=== PATIENT | female | born 1950 | race Caucasian/White ===

== ENCOUNTER 2023-07-22 10:15 | Outpatient (CLI) | payer MEDICARE, SELFPAY | END 2023-07-22 10:16 | disposition home or self-care (01) | LOC: NFLDREF 07-24 12:04 | PROVIDERS: PCP Family Medicine; Referring Provider Family Medicine; Visit Provider Family Medicine | DX: I10 Essential (primary) hypertension (principal); E78.5 Hyperlipidemia, unspecified; Z13.0 Encounter for screening for diseases of the blood and blood-forming organs and certain disorders involving the immune mechanism | CPT/HCPCS: 80048; 80061 ==

== ENCOUNTER 2023-08-27 12:44 | Outpatient (CLI) | payer MEDICARE, SELFPAY ==
--- NOTE | 2023-08-27 13:00 | CRLHL7_ITS ---
For Patients: As a result of the Century Cures Act, medical imaging exams and procedure reports are released immediately into your electronic medical record. You may view this report before your referring provider. If you have questions, please contact your health care provider. DXA BONE MINERAL DENSITY STUDY Reason for exam: Other specified disorders of bone density and structure-osteopenia, kyphosis. Current height (in): 68. Weight (lb): 230. Menopause age: 57. Ethnicity: White. 1. Have you had a previous hip or vertebral fracture? No. 2. Have you had any fractures during your adult life which did not result from significant trauma (e.g., auto accident)? No. 3. Did either of your parents have a hip fracture? No. 4. Do you smoke? No. 5. Have you ever taken Glucocorticoids? No. 6. Do you have rheumatoid arthritis? No. 7. Do you have secondary osteoporosis? No. 8. Do you drink 3 or more alcoholic drinks per day? No. 9. Are you being treated for osteoporosis? No. 10. Have you ever taken any of the following medications: Actonel, Evista, Fosamax, Miacalcin, Reclast, Boniva, Forteo, HRT (i.e., estrogen/hormone therapy), Protelos, Prolia, Vitamin D, Calcium, other ??? please specify. ANSWER: Yes, vitamin D and calcium. 11. Do you have any of the following medical conditions: Anorexia or bulimia, asthma or emphysema, end stage renal disease, hyperparathyroidism, any seizure disorders, cancer, inflammatory bowel diseases, hysterectomy, other ??? please specify. ANSWER: No. 12. What was your maximum height (inches)? 68. 13. Do you perform weight bearing exercise regularly? No. 14. Do you regularly consume dairy products? No. 15. Do you drink caffeinated beverages? Yes. If female: 16. At what age did your period start? 13. 17. Are you premenopausal? No. 18. How many full-term pregnancies have you had? 2. 19. Have you ever missed your period for more than 6 months in a row (not including or menopause)? No. TECHNIQUE: Bone mineral density study was performed using the [employer]. FINDINGS: The results of the study expressed as bone mineral density (BMD) are as follows: Lumbar spine L1 to L4: BMD: 1.093 g/cm2. T-score: 0.4. Z-score: 2.6 Neck Left: BMD: 0.683 g/cm2. T-score: -1.5. Z-score: 0.4 Right: BMD: 0.705 g/cm2. T-score: -1.3. Z-score: 0.6 Total Left: BMD: 0.813 g/cm2. T-score: -1.1. Z-score: 0.5 Right: BMD: 0.907 g/cm2. T-score: -0.3. Z-score: 1.3 IMPRESSION: Osteopenia. *Comparison exams done prior to 02/2020 were performed on different unit, [employer] COMPARISON: Compared with scan of 08/21/2016 the bone mineral density has increased by 2.4 percent at the spine and increased by 1.6 percent at the hip. FRAX 10-year Fracture Risk Major Osteoporotic Fracture: 9.6% Hip Fracture: 1.4% Reported Risk Factors: [place] () Neck BMD=0.683, BMI= 35.0 Alberto Hooper M.D. Diagnostic Radiologist [email or web address] [email or web address]/elza [email or web address]/Dictated by: Alberto Hooper MD @ 08/28/2023 10:31:00 AM (Electronically Signed)
== END 2023-08-27 12:45 | disposition home or self-care (01) ==
LOC: RAD 12:44
PROVIDERS: PCP Family Medicine; Visit Provider Family Medicine
DX: Z13.820 Encounter for screening for osteoporosis (principal); M85.80 Other specified disorders of bone density and structure, unspecified site
CPT/HCPCS: 77080

== ENCOUNTER 2023-09-03 09:40 | Outpatient (CLI) | payer MEDICARE, SELFPAY ==
--- NOTE | 2023-09-03 11:27 | W.ANESCHARGE ---
Anesthesia Charges Start Date/Time Anesthesia Start Date: 09/03/23 Anesthesia Start Time: 10:23 Stop Date/Time Anesthesia Stop Date: 09/03/23 Anesthesia Stop Time: 11:25 Summary Extremes of Age - Over 70 or under 1: IMPORT MANAGER
--- NOTE | 2023-09-03 14:54 | W.ANESCHARGE ---
Anesthesia Charges Start Date/Time Anesthesia Start Date: 09/03/23 Anesthesia Start Time: 10:23 Stop Date/Time Anesthesia Stop Date: 09/03/23 Anesthesia Stop Time: 11:25 Summary Extremes of Age - Over 70 or under 1: MDA
== END 2023-09-03 09:41 | disposition home or self-care (01) ==
LOC: OP CLINIC 09:40
PROVIDERS: PCP Family Medicine; Visit Provider Surgery
DX: Z12.11 Encounter for screening for malignant neoplasm of colon (principal); K63.5 Polyp of colon; K64.8 Other hemorrhoids; K57.30 Diverticulosis of large intestine without perforation or abscess without bleeding; Z83.719 Family history of colon polyps, unspecified
CPT/HCPCS: 00811; 45381; 45385; 88305; 99100; J2704

== ENCOUNTER 2023-10-21 11:21 | Outpatient (CLI) | payer MEDICARE, SELFPAY ==
--- NOTE | 2023-10-21 11:30 | CRLHL7_ITS ---
For Patients: As a result of the Century Cures Act, medical imaging exams and procedure reports are released immediately into your electronic medical record. You may view this report before your referring provider. If you have questions, please contact your health care provider. BILATERAL SCREENING MAMMOGRAM WITH COMPUTER-AIDED DETECTION AND TOMOSYNTHESIS TECHNIQUE: CC and MLO views were obtained. These mammographic images have been obtained using full-field digital technique. These mammographic images were interpreted with the benefit of computer-aided detection. Breast Tomosynthesis was used in this interpretation. COMPARISON FILM: 01/14/22, 12/04/20, 11/23/19. FINDINGS: There are scattered areas of fibroglandular density. IMPRESSION: There is no radiographic evidence for malignancy. ASSESSMENT: BI-RADS Category 2: Benign RECOMMENDATION: Routine screening mammogram in 1 year. A lay language report of this examination will be provided to the patient. Alberto Hooper M.D. Diagnostic Radiologist [email or web address] SP/Dictated by: Alberto Hooper MD @ 10/21/2023 12:51:00 PM (Electronically Signed)
== END 2023-10-21 11:22 | disposition home or self-care (01) ==
LOC: MAMMO 11:22
PROVIDERS: PCP Family Medicine; Visit Provider Family Medicine
DX: Z12.31 Encounter for screening mammogram for malignant neoplasm of breast (principal)
CPT/HCPCS: 77063; 77067

== ENCOUNTER 2023-11-03 12:36 | Outpatient (CLI) | payer MEDICARE, SELFPAY | END 2023-11-03 12:37 | disposition home or self-care (01) | LOC: NFLDUCREF 12:37 | PROVIDERS: PCP Family Medicine; Visit Provider Nurse Practitioner | DX: R79.89 Other specified abnormal findings of blood chemistry (principal) | CPT/HCPCS: 84550 ==

== ENCOUNTER 2024-09-05 11:23 | Outpatient (CLI) | payer MEDICARE, SELFPAY | END 2024-09-05 11:24 | disposition home or self-care (01) | PROVIDERS: PCP Family Medicine; Visit Provider Family Medicine | DX: E78.2 Mixed hyperlipidemia (principal); I10 Essential (primary) hypertension; Z13.29 Encounter for screening for other suspected endocrine disorder | CPT/HCPCS: 80048; 80061; 84443 ==

== ENCOUNTER 2024-09-29 10:10 | Outpatient (CLI) | payer MEDICARE, SELFPAY ==
--- NOTE | 2024-09-29 10:58 | P.ANES_ITS ---
Anesthesia Charges Start Date/Time Anesthesia Start Date: 09/29/24 Anesthesia Start Time: 11:10 Stop Date/Time Anesthesia Stop Date: 09/29/24 Anesthesia Stop Time: 12:01 Summary Extremes of Age - Over 70 or under 1: JOB PLACEMENT SPECIALIST Coding CPT Codes CPT Codes: ANES LWR INTST NDSC NOS - 22359 ([id number]) P3 - PATIENT W/SEVERE SYS DISEASE, QK - CHEMICAL STRENGTH TESTER 2-4 CNCRNT ANES PROC, QX - JOB PLACEMENT SPECIALIST SVC W/ MD MED DIRECTION Additional Codes: Summary - Extremes of Age - Over 70 or under 1: JOB PLACEMENT SPECIALIST ([id number])
--- NOTE | 2024-09-29 10:58 | W.ANESCHARGE ---
Anesthesia Charges Start Date/Time Anesthesia Start Date: 09/29/24 Anesthesia Start Time: 11:10 Stop Date/Time Anesthesia Stop Date: 09/29/24 Anesthesia Stop Time: 12:01 Summary Extremes of Age - Over 70 or under 1: LAMINATION ASSEMBLER Coding CPT Codes CPT Codes: ANES LWR INTST NDSC NOS - 60229 ([id number]) P3 - PATIENT W/SEVERE SYS DISEASE, QK - OFFSET LABEL REWINDER 2-4 CNCRNT ANES PROC, QX - LAMINATION ASSEMBLER SVC W/ MD MED DIRECTION Additional Codes: Summary - Extremes of Age - Over 70 or under 1: LAMINATION ASSEMBLER ([id number])
--- NOTE | 2024-09-29 12:22 | W.ANESCHARGE ---
Anesthesia Charges Start Date/Time Anesthesia Start Date: 09/29/24 Anesthesia Start Time: 11:10 Stop Date/Time Anesthesia Stop Date: 09/29/24 Anesthesia Stop Time: 12:01 Summary Extremes of Age - Over 70 or under 1: MDA Coding CPT Codes CPT Codes: ANES LWR INTST NDSC NOS - 41226 ([id number]) QK - COMPUTATIONAL CHEMIST 2-4 CNCRNT ANES PROC, QX - ELEMENTARY SCHOOL TEACHER SVC W/ MD MED DIRECTION, P3 - PATIENT W/SEVERE SYS DISEASE Additional Codes: Summary - Extremes of Age - Over 70 or under 1: MDA ([id number])
== END 2024-09-29 10:11 | disposition home or self-care (01) ==
LOC: OP CLINIC 10:11
PROVIDERS: PCP Family Medicine; Visit Provider Surgery
DX: Z12.11 Encounter for screening for malignant neoplasm of colon (principal); D12.2 Benign neoplasm of ascending colon; D12.3 Benign neoplasm of transverse colon; K56.699 Other intestinal obstruction unspecified as to partial versus complete obstruction; K64.8 Other hemorrhoids; K64.4 Residual hemorrhoidal skin tags; Z86.0101 Personal history of adenomatous and serrated colon polyps
CPT/HCPCS: 00811; 45385; 88305; 99100; J2704

== ENCOUNTER 2024-11-28 11:24 | Day surgery (SDC) | payer MEDICARE, SELFPAY ==
[2024-11-28] VITALS (29 sets, daily range): BP systolic 93–153; BP diastolic 55–90; PULSE 40–60; RESP 11–18; TEMP 36.1–36.7; O2SAT 83–99; BMI 35.9
[2024-11-28] MEDS: OXYCODONE (CR) 10 MG TAB.ER.12H PO (11:31)
[2024-11-28] MEDS: ACETAMINOPHEN 500 MG TABLET 1000 MG PO ×2 (11:31→22:12)
[2024-11-28] MEDS: LACTATED RINGERS 1000 ML 1,000 ML 100 ML IV ×2 (11:35→16:08)
--- NOTE | 2024-11-28 11:55 | W.PM.H&PU ---
History & Physical Update History & Physical Update H&P Reviewed and patient assessed: No changes noted
[2024-11-28] MEDS: SODIUM CHLORIDE 0.9 % (FLUSH) 10 ML SYRINGE IVF (12:03)
[2024-11-28] MEDS: MIDAZOLAM HCL 1 MG/ML inj IVP (12:52)
[2024-11-28] MEDS: fentaNYL 100 MCG/2 ML inj IVP (12:52)
--- NOTE | 2024-11-28 13:02 | W.PM.NB ---
Nerve Block Nerve Block Time Seen by Provider: 13:00 Date Seen: 11/28/24 Type of block requested by surgeon for post-operative analgesia: adductor canal Side: left Time out performed: Yes Verification of patient name: Yes Verification of date of : Yes Site marking: site marked Name of person performing procedure: Ruiz Continuous monitoring Was continuous monitoring of O2 sat, B/P, production statistical clerk, recorded every 15 minutes?: Yes Procedure Checklist: sterile prep, needles and gloves Ultrasound guided. Images saved: Yes Medications given in 5ml increments after negative aspiration: Marcaine %: 0.25 mL: 15 Needle gauge: 20 Precedex (mcg): 25 Patient tolerated procedure well: Yes Block Charges Block Charge (with Pro Fee): Femoral Nerve Use of Ultrasound Machine for Block: Yes- US Guidance/pain block
--- NOTE | 2024-11-28 13:02 | W.PM.NB ---
Nerve Block Nerve Block Time Seen by Provider: 13:00 Date Seen: 11/28/24 Type of block requested by surgeon for post-operative analgesia: geniculars Side: left Time out performed: Yes Verification of patient name: Yes Verification of date of : Yes Site marking: site marked Name of person performing procedure: Ruiz Continuous monitoring Was continuous monitoring of O2 sat, B/P, vibrator operator, recorded every 15 minutes?: Yes Procedure Checklist: sterile prep, needles and gloves Ultrasound guided. Images saved: Yes Medications given in 5ml increments after negative aspiration: Marcaine %: 0.25 mL: 9 Needle gauge: 25 Patient tolerated procedure well: Yes Block Charges Block Charge (with Pro Fee): Genicular Nerve Block
[2024-11-28] MEDS: TRANEXAMIC ACID 100 MG/ML INJ 1000 MG IV (13:50)
[2024-11-28] MEDS: CEFAZOLIN 2 GM in 0.9 % SODIUM CHLORIDE Mini-bag 100 ML IVPB ×2 (13:57→20:30)
--- NOTE | 2024-11-28 15:23 | W.ANESCHARGE ---
Anesthesia Charges Start Date/Time Anesthesia Start Date: 11/28/24 Anesthesia Start Time: 13:29 Stop Date/Time Anesthesia Stop Date: 11/28/24 Anesthesia Stop Time: 16:55 Summary Extremes of Age - Over 70 or under 1: MDA Coding CPT Codes CPT Codes: ANESTH KNEE ARTHROPLASTY - 89349 ([id number]) P3 - PATIENT W/SEVERE SYS DISEASE, QK - TRACTOR TRAILER DRIVER 2-4 CNCRNT ANES PROC, QX - L TACKER SVC W/ MD MED DIRECTION Additional Codes: Summary - Extremes of Age - Over 70 or under 1: MDA ([id number])
--- NOTE | 2024-11-28 16:02 | PM.ORPRC ---
Procedure Note Date of procedure: 11/28/24 Procedure: PREOPERATIVE DIAGNOSIS: 1. Left knee osteoarthritis, primary, severe POSTOPERATIVE DIAGNOSIS: 1. Left knee osteoarthritis, primary, severe PROCEDURE: 1. Left total knee arthroplasty - subvastus - 33 % added difficulty and time to this case due to patient's significant valgus deformity which required stemmed tibial component and intraoperative radiograph to assess alignment. SURGEON: Alex Boggs MD. CEMENT PRODUCTION PLANT OPERATOR: Ricardo Sultana PA-C - Of note, a skilled speech and language assistant was critical for this case to aid in patient positioning, tissue retraction, limb manipulation/positioning, and closure. ANESTHESIA: Spinal anesthetic EBL: 100 mL IMPLANTS: DePuy J&J all cemented TKA - Attune PS femur size 6 Size 6 tibia ([id number] stem) 6 mm poly spacer 35 mm patella TOURNIQUET: Total time of 91 min at 300 torr COMPLICATIONS: None evident INDICATIONS: The patient is a pleasant 74-year-old female who has experienced severe left knee pain and difficulty bearing weight. Workup included x-rays which revealed severe osteoarthrosis in the knee. Given the deformity, the dysfunction, and the pain, as well as the failure of nonoperative management, recommendation was made for surgery. FINDINGS: Full-thickness chondral loss diffusely throughout the lateral compartment but also medial and patellofemoral compartments. Degenerative meniscus pathology lateral greater than medial. Very large effusion upon entering the joint. Significant valgus deformity preoperatively with recurvatum. DESCRIPTION OF PROCEDURE: Following a thorough discussion of risks, benefits, and alternatives consent was obtained and the left knee was marked. The patient was brought to the operating room and placed supine on the operating table. Induction of anesthesia was undertaken. 2 g IV Ancef and 1 g tranexamic acid was administered within 1 hr of incision preoperatively. Proper time-out was performed identifying proper patient, site, procedure. The operative extremity was prepped and draped in the appropriate sterile fashion using ChloraPrep after the patient was positioned supine with all bony prominences well padded. A longitudinal, anterior, midline skin incision was made starting approximately 3cm proximal to the superior pole of the patella and advanced distal to the tibial tubercle. A subvastus approach was utilized. A medial subperiosteal sleeve was created with knife, wynne elevator and curved osteotome. The retropatellar fatpad was resected and the synovium in the suprapatellar pouch excised to visualize the anterior femoral cortex. Femoral preparation was performed via an intramedullary guide. Step drill allowed access into the femoral canal. The distal cutting guide was placed with 6 ? of valgus and 10 mm cut on the distal femur. Femur was sized using a combination of trans epicondylar axis, Whitesides line, and posterior referencing guide in 5 ? of external rotation. This found have a best fit with the sizing noted above. The 4 in 1 cutting block was then placed, and the distal femur shaped accordingly. The box cut was then created and the trial implant inserted to confirm appropriate fit. We turned our attention to the proximal tibia. Extramedullary guide was utilized for cutting with the goal of being 90 degree cut from the mechanical axis of the tibia in the varus/valgus plane utilizing tibial crest as the primary alignment. Initially a 3 mm resection was performed from the medial tibial plateau. Given the significant valgus deformity, there was thought that possibly increased constraint would be needed. Additionally, given her poor bone quality was felt that a stem tibial component would be prudent. However, and preparing for the tibial component we found that the drill would not pass appropriately/smoothly. Therefore, intraoperative x-ray was obtained to evaluate the stem alignment/position. It was found that increasing the slope in increasing our valgus cut on the tibia would be appropriate to improve the alignment of the tibial stem. Thus, this was recut and the tibial component replaced and positioned. Of note, while we were waiting for and taking the intraop radiographs, the tourniquet was deflated after 70 minutes and hemostasis achieved. It remained down for 21 minutes. It was then reinflated for another 21 minutes for a total of 91 minutes. Ultimately, balancing was achieved in both flexion and extension in both varus and valgus. The knee was able to achieve full extension as well comfortably. The patella was initially measured and found have a thickness of 22 mm. It was resected back to approximately 14 mm. It was sized to be a best fit with as noted above. This was drilled, trial placed. All trials were placed and found to have an excellent stability and balance. At this stage, trial implants were removed, the knee was thoroughly irrigated with normal saline, and the cement was mixed. After irrigation, the knee was thoroughly dried, and cement placed, with the real tibial and femoral implants placed along with the patella. Trial poly spacer was placed and confirmed to have excellent range of motion and full extension, and the real poly spacer opened and inserted. All extra cement was removed, and a 3 min Betadine soak performed. Finally, a final irrigation round with normal saline was performed. Closure performed with 0 PDS and #0 Stratafix for the quad tendon/retinaculum. 2-0 Vicryl/Stratafix for the subcutaneous and 4-0 Monocryl for subcuticular closure. Dressings were applied and the patient was awoken from anesthesia after the tourniquet deflated and transferred the PACU in stable condition. A skilled speech and language assistant was critical for this case to aid in patient positioning, tissue retraction, bone exposure, limb manipulation/positioning, patient safety, and closure. * Again, 33 % added difficulty and time to this case due to patient's significant valgus deformity which required stemmed tibial component and intraoperative radiographs to assess and correct alignment. PLAN: 1. Weight bear as tolerated operative extremity. 2. 23 hr perioperative antibiotics. 3. Ice. 4. PT/OT consults for ambulation assistance/mobility education. 5. Social work consult for discharge planning. 6. DVT prophylaxis with at SCDs and aspirin twice daily.
--- NOTE | 2024-11-28 17:03 | W.ANESCHARGE ---
Anesthesia Charges Start Date/Time Anesthesia Start Date: 11/28/24 Anesthesia Start Time: 13:29 Stop Date/Time Anesthesia Stop Date: 11/28/24 Anesthesia Stop Time: 16:55 Summary Extremes of Age - Over 70 or under 1: GIS DATABASE ADMINISTRATOR Coding CPT Codes CPT Codes: ANESTH KNEE ARTHROPLASTY - 88083 ([id number]) P2 - PATIENT W/MILD SYST DISEASE, QK - UNIT CONTROLLER 2-4 CNCRNT ANES PROC, QX - GIS DATABASE ADMINISTRATOR SVC W/ MD MED DIRECTION Additional Codes: Summary - Extremes of Age - Over 70 or under 1: GIS DATABASE ADMINISTRATOR ([id number])
--- NOTE | 2024-11-28 17:51 | PM.IMCN1 ---
Date of Consult Consult date: 11/28/24 Requesting Physician: Orthopedics Primary Care Provider: Jose Pizano MD Consult Narrative Narrative: HOSPITALIST CONSULT Procedure: Left total knee arthroplasty - subvastus - 33 % added difficulty and time to this case due to patient's significant valgus deformity which required stemmed tibial component and intraoperative radiograph to assess alignment. SURGEON: Alex Boggs MD. ANESTHESIA: Spinal anesthetic EBL: 100 mL COMPLICATIONS: None evident The hospital medicine team was asked by the orthopedic surgery team to manage the patient's 6 med regimen hypertension, hyperlipidemia There have been no perioperative complications. I have updated and reviewed the active medical problems, past medical history, past surgical history, social history, allergies and medications in our electronic EMR. This includes a cross reference to care everywhere in [facility] and with [employer] [facility] databases. PHYSICAL EXAM: CODE STATUS: FULL CODE CONSTITUTIONAL: Conversive, good historian. A/O. Knows setting and context. VITAL SIGNS: see record. HEENT: Normocephalic, atraumatic. PERRL, EOMI, conjunctivae pink, no scleral icterus. Ears and nose externally normal. Pharynx normal. NECK: No JVD. No carotid bruit, no thyromegaly, no adenopathy. CHEST: Clear to auscultation bilaterally HEART: S1 and S2 normal. ABDOMEN: Flat, soft, nontender. Normal bowel sounds. Moderately obese. EXTREMITIES: No edema. MUSCULOSKELETAL: left knee SDI NEURO: Cranial nerves intact. Mentation normal. Normal affect. SKIN: No rashes, petechiae, concerning changes PSYCHIATRIC: Mentation normal. INVESTIGATIONS: EMR Reviewed; Pre-OP Reviewed DISPOSITION: DVT: Agree with Ortho team decision GI: PO intake [facility] Medical History (Updated 11/28/24 @ 18:34 by Carmel Villar MD) Family history of diabetes mellitus ?Z83.3 - Family history of diabetes mellitus (ICD-10) Osteoarthritis of left knee ?M17.12 - Unilateral primary osteoarthritis, left knee (ICD-10) Osteoarthritis of right knee ?M17.11 - Unilateral primary osteoarthritis, right knee (ICD-10) Pre-op examination ?Z01.818 - Encounter for other preprocedural examination (ICD-10) Hypertension ?I10 - Essential (primary) hypertension (ICD-10) Hyperlipidemia ?E78.5 - Hyperlipidemia, unspecified (ICD-10) GERD (gastroesophageal reflux disease) ?K21.9 - Gastro-esophageal reflux disease without esophagitis (ICD-10) Gout ?M10.9 - Gout, unspecified (ICD-10) Osteopenia ?M85.80 - Other specified disorders of bone density and structure, unspecified site (ICD-10) DJD (degenerative joint disease), lumbar ?M47.816 - Spondylosis without myelopathy or radiculopathy, lumbar region (ICD-10) Diverticulosis ?K57.90 - Diverticulosis of intestine, part unspecified, without perforation or abscess without bleeding (ICD-10) Cataracts, bilateral ?H26.9 - Unspecified cataract (ICD-10) Macular degeneration ?H35.30 - Unspecified macular degeneration (ICD-10) Pes planus of both feet ?M21.41 - Flat foot [pes planus] (acquired), right foot (ICD-10) ?M21.42 - Flat foot [pes planus] (acquired), left foot (ICD-10) Surgical History (Updated 11/28/24 @ 18:07 by Carmel Villar MD) Status post total left knee replacement ?Z96.652 - Presence of left artificial knee joint (ICD-10) History of breast biopsy ?Z98.890 - Other specified postprocedural states (ICD-10) History of ?Z98.891 - History of uterine scar from previous surgery (ICD-10) Status post appendectomy ?Z90.49 - Acquired absence of other specified parts of digestive tract (ICD-10) Status post tonsillectomy and adenoidectomy ?Z90.89 - Acquired absence of other organs (ICD-10) Family History Sister Lung cancer Liver cancer Social History Narrative: -[place] former smoker (2011) Smoking Status: Former smoker What tobacco products do you use: cigarettes Smoking quit date/years: <= 15 years ago Do you use any of these nicotine containing products: None Second hand tobacco smoke exposure: No How often do you have a drink containing alcohol: 2-3 times a week AUDIT-C Alcohol total score: 3 Non-prescribed substance use: denies use Caffeine: Yes Meds Home Medications and Allergies Home Medications ?Medication ?Instructions ?Recorded ?Confirmed ?Type aspirin 81 mg tablet,delayed 81 mg PO QDAY 02/16/24 11/28/24 History release (Adult Aspirin Regimen) Allergies Allergy/AdvReac Type Severity Reaction Status Date / Time erythromycin base Allergy Unknown Gastrointestinal Verified 11/28/24 11:58 Upset Macrolide Antibiotics Allergy Unknown Verified 11/28/24 11:58 Exam Const: Vital Signs, click to edit/add: Vital Signs - 24 hr 11/28/24 11:59 11/28/24 12:52 11/28/24 13:00 Temperature 97.9 F Pulse Rate 52 L 50 L 43 L Respiratory Rate 16 16 16 Blood Pressure 133/90 H 153/82 H 124/79 Pulse Oximetry 95 99 99 Oxygen Delivery Me thod Room Air Nasal Cannula Nasal Cannula Oxygen Flow Rate 3 3 11/28/24 13:18 11/28/24 16:50 11/28/24 16:55 Temperature 97.4 F L Pulse Rate 44 L 53 L 46 L Respiratory Rate 16 11 L 12 Blood Pressure 95/62 95/63 112/64 Pulse Oximetry 98 94 95 Oxygen Delivery Me thod Nasal Cannula Nasal Cannula Nasal Cannula Oxygen Flow Rate 3 3 3 11/28/24 17:00 11/28/24 17:05 11/28/24 17:10 Temperature 98.0 F Pulse Rate 46 L 43 L 40 L Respiratory Rate 12 12 12 Blood Pressure 112/64 114/67 115/63 Pulse Oximetry 96 90 95 Oxygen Delivery Me thod Nasal Cannula Nasal Cannula Nasal Cannula Oxygen Flow Rate 3 3 3 11/28/24 17:15 11/28/24 17:20 Temperature 98.0 F Pulse Rate 42 L 43 L Respiratory Rate 12 14 Blood Pressure 108/64 93/58 L Pulse Oximetry 93 93 Oxygen Delivery Me thod Nasal Cannula Nasal Cannula Oxygen Flow Rate 3 3 Assessment and Plan Assessment and plan (1) Status post total left knee replacement: Problem comment: November 2024; Dr. Mulligan [facility] medicine team is happy to follow the patient through to discharge. We are expecting a routine postoperative course. I have reconciled home medications and completed our part of the discharge. -I will hold antihypertensives as indicated per our practice standard Status: Acute (2) Hypertension: Problem comment: -six med regimen (atenolol, furosemide, lisinopril, spironolactone, verapamil ER) - holding the atenolol, lisinopril. parameters on the verapamil ER. -reviewed ECG from pre-op appt (BP then was 147/71, P 50) -will add back home meds cautiously in the next 24 hours Status: Chronic (3) Bradycardia: Problem comment: -baseline has been 50's since 2022. P was 50 at pre-op -telemetry added as a caution Status: Acute (4) Hyperlipidemia: Problem comment: -continue home meds Status: Chronic (5) GERD (gastroesophageal reflux disease): Problem comment: -continue home meds Status: Acute
[2024-11-28] MEDS: OXYCODONE 5 MG TABLET PO (19:11)
--- NOTE | 2024-11-28 19:36 | PC.NURSE ---
Nursing Care Hours: [id number] Pt arrived to unit alert and oriented. Pain reached 2/10. Treated per emar. Pt tolerating PO intake. BP stable. H/O bradycardia, lowest HR was 38 for less than a minute and steady around mid 40's. Encouraged IS to keep sats above 90%. Sitting high fowlers in bed.
[2024-11-28] MEDS: ASPIRIN 81 MG TABLET EC PO (20:30)
[2024-11-28] MEDS: ATORVASTATIN CALCIUM 40 MG TABLET PO (20:30)
[2024-11-28] MEDS: SENNOSIDES 1 TAB TABLET 2 TAB PO (20:30)
[2024-11-28] MEDS: SPIRONOLACTONE 25 MG TABLET PO (20:30)
[2024-11-29] VITALS (7 sets, daily range): BP systolic 001–127; BP diastolic 48–76; PULSE 51–56; RESP 16–20; TEMP 36.5–36.9; O2SAT 91–94
[2024-11-29] MEDS: OXYCODONE 5 MG TABLET PO ×4 (04:03→15:25)
[2024-11-29] MEDS: ACETAMINOPHEN 500 MG TABLET 1000 MG PO ×3 (04:03→15:25)
[2024-11-29] MEDS: CEFAZOLIN 2 GM in 0.9 % SODIUM CHLORIDE Mini-bag 100 ML IVPB ×2 (04:04→12:47)
[2024-11-29 06:39] LABS: Basophils Absolute Auto 0.01 K/uL (0.00-0.30); Basophils Percent Auto 0.1 % (0.0-3.0); Hematocrit 34.1 % (33.0-51.0); Hemoglobin* 11.1 gm/dL (12.0-16.0); Immature Granulocytes Abs Auto 0.02 K/uL (0.00-0.30); Immature Granulocytes Pct Auto 0.2 %; Lymphocytes Percent Auto 6.8 % (20-44); Mean Corpuscular HGB Conc 33 gm/dL (32-36); Mean Corpuscular Hemoglobin 34 pg (26-34); Mean Corpuscular Volume 103 fL (80-100); Monocytes Percent Auto 8.4 % (0.0-11.0); Neutrophils Percent Auto 84.5 % (42.0-72.0); Platelet Count* 219 K/uL (140-440); RDW Coefficient of Variation % 13.8 % (11.5-15.5); White Blood Count* 10.49 K/uL (4.50-11.00)
[2024-11-29 06:41] LABS: Slide Review Reflex No
[2024-11-29 06:47] LABS: Potassium* 4.6 mmol/L (3.6-5.1); Sodium* 135 mmol/L (135-149)
[2024-11-29 06:50] LABS: Blood Urea Nitrogen* 27 mg/dL (7-30); Creatinine* 0.8 mg/dL (0.5-1.5); Estimated Glomerular Filt Rate 78 ml/min
--- NOTE | 2024-11-29 07:50 | PC.NURSE ---
Pt alert and oriented. Pt pleasant and cooperative. Pt up with assist of one-two with walker and gait belt. Pt had complaints of pain ranging from 0-6; see EMAR for intervention.? ?
--- NOTE | 2024-11-29 08:26 | PM.IMPN1 ---
Progress Note: A&P Assessment and plan (1) Status post total left knee replacement: Problem details: November 2024; Dr. Mulligan pure no complications. Anticipate discharge to home when adequate pain control and able to ambulate with a walker. Status: Acute (2) Bradycardia: Problem details: Chronic bradycardia. Presumably secondary to medications. Appears to be asymptomatic with this. I recommend stopping verapamil and reducing atenolol from 100 mg to 50 mg daily and getting outpatient followup next week. Status: Acute (3) Hypertension: Problem details: Currently treated with spironolactone 25 mg b.i.d., lisinopril 40 mg daily, furosemide 20 mg daily, atenolol 100 mg daily, verapamil 120 mg daily. Due to bradycardia will cut atenolol in half and stop verapamil. Follow up next week in clinic to review. Consider amlodipine as alternative calcium channel leonard. Consider echocardiogram for evaluation of hypertensive heart disease. Status: Chronic Plan Possible discharge later today if doing well with therapy and pain management. Monitoring of blood pressure and pulse today for changes in blood pressure medications due to bradycardia. Time Spent With Patient Total time spent: Total time spent today is 35 minutes in coordination of care and discussing with patient and ongoing evaluation management. Subjective Date Seen: 11/29/24 Interval history: 74-year-old female admitted to the hospital for left total knee arthroplasty. Procedures performed by Dr. Boggs. No complications. Postoperatively she has had some difficulty getting up and walking. It is gotten better overnight. She is anxious about getting up again today. She was noted to be bradycardic through her surgery and since surgery with pulses around 50. In reviewing her records I see that that is also been true in the outpatient setting. She is on atenolol 100 mg daily and verapamil 120 mg daily for blood pressure control. I recommended that we stop the verapamil and reduce the atenolol dose by half to 50 mg daily pending outpatient followup. She may need additional blood pressure medication that does not cause bradycardia. Exam Narrative: Exam Narrative: She is alert appears in no distress. She is breathing comfortably. Lower extremities examined. She has mild swelling around her left surgical knee without significant erythema. Distally no significant edema. She has intact pulses and sensation. Right knee is noted to have significant valgus deformity. Intact strength in her feet and ankles. Const: Vital Signs, click to edit/add: Vital Signs - 24 hr 03/10/25 11:59 11/28/24 12:52 11/28/24 13:00 Temperature 97.9 F Pulse Rate 52 L 50 L 43 L Pulse Rate [Pulse Oximeter] Pulse Rate [Radial ] Respiratory Rate 16 16 16 Blood Pressure 133/90 H 153/82 H 124/79 Blood Pressure [Le ft Arm] Pulse Oximetry 95 99 99 Oxygen Delivery Me thod Room Air Nasal Cannula Nasal Cannula Oxygen Flow Rate 3 3 11/28/24 13:18 11/28/24 16:50 11/28/24 16:55 Temperature 97.4 F L Pulse Rate 44 L 53 L 46 L Pulse Rate [Pulse Oximeter] Pulse Rate [Radial ] Respiratory Rate 16 11 L 12 Blood Pressure 95/62 95/63 112/64 Blood Pressure [Le ft Arm] Pulse Oximetry 98 94 95 Oxygen Delivery Me thod Nasal Cannula Nasal Cannula Nasal Cannula Oxygen Flow Rate 3 3 3 11/28/24 17:00 11/28/24 17:05 11/28/24 17:10 Temperature 98.0 F Pulse Rate 46 L 43 L 40 L Pulse Rate [Pulse Oximeter] Pulse Rate [Radial ] Respiratory Rate 12 12 12 Blood Pressure 112/64 114/67 115/63 Blood Pressure [Le ft Arm] Pulse Oximetry 96 90 95 Oxygen Delivery Me thod Nasal Cannula Nasal Cannula Nasal Cannula Oxygen Flow Rate 3 3 3 11/28/24 17:15 11/28/24 17:20 11/28/24 17:45 Temperature 98.0 F Pulse Rate 42 L 43 L 43 L Pulse Rate [Pulse Oximeter] Pulse Rate [Radial ] Respiratory Rate 12 14 16 Blood Pressure 108/64 93/58 L 118/64 Blood Pressure [Le ft Arm] Pulse Oximetry 93 93 86 L Oxygen Delivery Me thod Nasal Cannula Nasal Cannula Room Air Oxygen Flow Rate 3 3 11/28/24 18:00 11/28/24 18:01 11/28/24 18:15 Temperature Pulse Rate 42 L 45 L 42 L Pulse Rate [Pulse Oximeter] Pulse Rate [Radial ] Respiratory Rate 16 14 16 Blood Pressure 115/73 122/65 128/63 Blood Pressure [Le ft Arm] Pulse Oximetry 90 90 92 Oxygen Delivery Me thod Room Air Room Air Room Air Oxygen Flow Rate 11/28/24 18:30 11/28/24 18:38 11/28/24 19:00 Temperature Pulse Rate 45 L 43 L 42 L Pulse Rate [Pulse Oximeter] Pulse Rate [Radial ] Respiratory Rate 16 16 16 Blood Pressure 125/70 125/70 128/55 L Blood Pressure [Le ft Arm] Pulse Oximetry 92 92 91 Oxygen Delivery Me thod Room Air Room Air Room Air Oxygen Flow Rate 11/28/24 19:30 11/28/24 20:30 11/28/24 20:45 Temperature 97.0 F L 97.2 F L Pulse Rate 49 L 50 L Pulse Rate [Pulse Oximeter] Pulse Rate [Radial ] Respiratory Rate 16 16 Blood Pressure 129/72 126/75 Blood Pressure [Le ft Arm] Pulse Oximetry 91 92 83 L Oxygen Delivery Me thod Room Air Room Air Room Air Oxygen Flow Rate 0 0 11/28/24 21:00 11/28/24 21:29 11/28/24 22:06 Temperature 97.4 F L Pulse Rate 51 L Pulse Rate [Pulse Oximeter] Pulse Rate [Radial ] Respiratory Rate 16 Blood Pressure 127/72 Blood Pressure [Le ft Arm] Pulse Oximetry 92 92 92 Oxygen Delivery Me thod Nasal Cannula Nasal Cannula Oxygen Flow Rate 1 1 11/28/24 22:08 11/28/24 22:30 11/28/24 22:39 Temperature 97.4 F L Pulse Rate 45 L Pulse Rate [Pulse Oximeter] Pulse Rate [Radial ] 48 L Respiratory Rate 16 16 Blood Pressure 121/67 Blood Pressure [Le ft Arm] Pulse Oximetry 92 92 Oxygen Delivery Me thod Nasal Cannula Nasal Cannula Oxygen Flow Rate 1 1 11/28/24 23:00 11/28/24 23:30 11/29/24 04:08 Temperature 97.8 F 98.3 F Pulse Rate 45 L 60 Pulse Rate [Pulse Oximeter] 56 L Pulse Rate [Radial ] Respiratory Rate 18 18 Blood Pressure 108/61 Blood Pressure [Le ft Arm] 127/76 Pulse Oximetry 91 92 Oxygen Delivery Me thod Nasal Cannula Room Air Oxygen Flow Rate 1 11/29/24 06:34 Temperature 98.5 F Pulse Rate Pulse Rate [Pulse Oximeter] 54 L Pulse Rate [Radial ] Respiratory Rate 16 Blood Pressure Blood Pressure [Le ft Arm] 106/68 Pulse Oximetry 91 Oxygen Delivery Me thod Room Air Oxygen Flow Rate Documenting provider has reviewed patient's vital signs: yes Labs Labs: Laboratory Results - last 24 hr 03/11/25 06:18 WBC 10.49 RBC 3.30 L Hgb 11.1 L Hct 34.1 MCV 103 H MCH 34 MCHC 33 RDW Coeff of Leona 13.8 Plt Count 219 Neut % (Auto) 84.5 H Lymph % (Auto) 6.8 L Knott % (Auto) 8.4 Eos % (Auto) 0.0 Baso % (Auto) 0.1 Neut # (Auto) 8.90 H Lymph # (Auto) 0.70 L Knott # (Auto) 0.90 Eos # (Auto) 0.00 Baso # (Auto) 0.01 Abs Immat Gran (auto) 0.02 Imm/Tot Granulo (auto) 0.2 Sodium 135 Potassium 4.6 BUN 27 Creatinine 0.8 Estimated Creat Clear 47.60 Estimated GFR 78
[2024-11-29] MEDS: SENNOSIDES 1 TAB TABLET 2 TAB PO (09:07)
[2024-11-29] MEDS: FUROSEMIDE 20 MG TABLET PO (09:07)
[2024-11-29] MEDS: OMEPRAZOLE 20 MG CAPSULE DR PO (09:07)
[2024-11-29] MEDS: ASPIRIN 81 MG TABLET EC PO (09:07)
[2024-11-29] MEDS: SPIRONOLACTONE 25 MG TABLET PO (09:08)
--- NOTE | 2024-11-29 09:26 | PM.ORPN ---
Subjective Subjective Date Seen: 11/29/24 Principal diagnosis: Status postop day 1 left total knee arthroplasty Interval history: Patient reports doing well. No acute events over night. Both legs feel somewhat weak and sluggish. No give outs during ambulation. Pain managed with scheduled and PRN medications, ice. DVT prophylaxis: 81 mg aspirin by mouth twice daily, SCDs, walking. Denies fevers, chills, aches, N/V, CP, SOB/JOHNSON, or lightheadedness. Ortho Exam Narrative Exam Narrative: -Patient appears comfortable; no apparent acute distress -Alert and oriented times 3 -Operative knee moderately swollen with a mild-moderate effusion; soft tissues supple; no ecchymosis; no erythematous streaking Warmth appropriate -Surgical dressing clean, dry, intact; no drainage -Bilateral calfs soft; no significant swelling, edema, tenderness, erythema, discoloration, warmth, or palpable cords -2+ DP/PT pulses, intact dermatomes and myotomes distally (5/5 strength) Const Vital Signs, click to edit/add: Vital Signs - 24 hr 11/28/24 11:59 11/28/24 12:52 11/28/24 13:00 Temperature 97.9 F Pulse Rate 52 L 50 L 43 L Pulse Rate [Pulse Oximeter] Pulse Rate [Radial] Respiratory Rate 16 16 16 Blood Pressure 133/90 H 153/82 H 124/79 Blood Pressure [Left Arm] Pulse Oximetry 95 99 99 Oxygen Delivery Method Room Air Nasal Cannula Nasal Cannula Oxygen Flow Rate 3 3 11/28/24 13:18 11/28/24 16:50 11/28/24 16:55 Temperature 97.4 F L Pulse Rate 44 L 53 L 46 L Pulse Rate [Pulse Oximeter] Pulse Rate [Radial] Respiratory Rate 16 11 L 12 Blood Pressure 95/62 95/63 112/64 Blood Pressure [Left Arm] Pulse Oximetry 98 94 95 Oxygen Delivery Method Nasal Cannula Nasal Cannula Nasal Cannula Oxygen Flow Rate 3 3 3 11/28/24 17:00 11/28/24 17:05 11/28/24 17:10 Temperature 98.0 F Pulse Rate 46 L 43 L 40 L Pulse Rate [Pulse Oximeter] Pulse Rate [Radial] Respiratory Rate 12 12 12 Blood Pressure 112/64 114/67 115/63 Blood Pressure [Left Arm] Pulse Oximetry 96 90 95 Oxygen Delivery Method Nasal Cannula Nasal Cannula Nasal Cannula Oxygen Flow Rate 3 3 3 11/28/24 17:15 11/28/24 17:20 11/28/24 17:45 Temperature 98.0 F Pulse Rate 42 L 43 L 43 L Pulse Rate [Pulse Oximeter] Pulse Rate [Radial] Respiratory Rate 12 14 16 Blood Pressure 108/64 93/58 L 118/64 Blood Pressure [Left Arm] Pulse Oximetry 93 93 86 L Oxygen Delivery Method Nasal Cannula Nasal Cannula Room Air Oxygen Flow Rate 3 3 11/28/24 18:00 11/28/24 18:01 11/28/24 18:15 Temperature Pulse Rate 42 L 45 L 42 L Pulse Rate [Pulse Oximeter] Pulse Rate [Radial] Respiratory Rate 16 14 16 Blood Pressure 115/73 122/65 128/63 Blood Pressure [Left Arm] Pulse Oximetry 90 90 92 Oxygen Delivery Method Room Air Room Air Room Air Oxygen Flow Rate 11/28/24 18:30 11/28/24 18:38 11/28/24 19:00 Temperature Pulse Rate 45 L 43 L 42 L Pulse Rate [Pulse Oximeter] Pulse Rate [Radial] Respiratory Rate 16 16 16 Blood Pressure 125/70 125/70 128/55 L Blood Pressure [Left Arm] Pulse Oximetry 92 92 91 Oxygen Delivery Method Room Air Room Air Room Air Oxygen Flow Rate 11/28/24 19:30 11/28/24 20:30 11/28/24 20:45 Temperature 97.0 F L 97.2 F L Pulse Rate 49 L 50 L Pulse Rate [Pulse Oximeter] Pulse Rate [Radial] Respiratory Rate 16 16 Blood Pressure 129/72 126/75 Blood Pressure [Left Arm] Pulse Oximetry 91 92 83 L Oxygen Delivery Method Room Air Room Air Room Air Oxygen Flow Rate 0 0 11/28/24 21:00 11/28/24 21:29 11/28/24 22:06 Temperature 97.4 F L Pulse Rate 51 L Pulse Rate [Pulse Oximeter] Pulse Rate [Radial] Respiratory Rate 16 Blood Pressure 127/72 Blood Pressure [Left Arm] Pulse Oximetry 92 92 92 Oxygen Delivery Method Nasal Cannula Nasal Cannula Oxygen Flow Rate 1 1 11/28/24 22:08 11/28/24 22:30 11/28/24 22:39 Temperature 97.4 F L Pulse Rate 45 L Pulse Rate [Pulse Oximeter] Pulse Rate [Radial] 48 L Respiratory Rate 16 16 Blood Pressure 121/67 Blood Pressure [Left Arm] Pulse Oximetry 92 92 Oxygen Delivery Method Nasal Cannula Nasal Cannula Oxygen Flow Rate 1 1 11/28/24 23:00 11/28/24 23:30 11/29/24 04:08 Temperature 97.8 F 98.3 F Pulse Rate 45 L 60 Pulse Rate [Pulse Oximeter] 56 L Pulse Rate [Radial] Respiratory Rate 18 18 Blood Pressure 108/61 Blood Pressure [Left Arm] 127/76 Pulse Oximetry 91 92 Oxygen Delivery Method Nasal Cannula Room Air Oxygen Flow Rate 1 11/29/24 06:34 Temperature 98.5 F Pulse Rate Pulse Rate [Pulse Oximeter] 54 L Pulse Rate [Radial] Respiratory Rate 16 Blood Pressure Blood Pressure [Left Arm] 106/68 Pulse Oximetry 91 Oxygen Delivery Method Room Air Oxygen Flow Rate Assessment and Plan Assessment and plan (1) Status post total left knee replacement: Problem details: November 2024; Dr. Boggs, no complications. Anticipate discharge to home when adequate pain control and able to ambulate with a walker. Status: Acute (2) Bradycardia: Problem details: Chronic bradycardia. Presumably secondary to medications. Appears to be asymptomatic with this. I recommend stopping verapamil and reducing atenolol from 100 mg to 50 mg daily and getting outpatient followup next week. Status: Acute (3) Hypertension: Problem details: Currently treated with spironolactone 25 mg b.i.d., lisinopril 40 mg daily, furosemide 20 mg daily, atenolol 100 mg daily, verapamil 120 mg daily. Due to bradycardia will cut atenolol in half and stop verapamil. Follow up next week in clinic to review. Consider amlodipine as alternative calcium channel leonard. Consider echocardiogram for evaluation of hypertensive heart disease. Status: Chronic Plan - Complete 23 hour perioperative antibiotics. - PT/OT consult for education and assistance. - Social work consult for discharge planning - Prescribed analgesics as needed - DVT prophylaxis: 81 mg aspirin by mouth twice daily, walking, and SCDs - Will line hold Celebrex for 1 month. - Anticipation is for discharge to home with today 11/29/2024 if the patient remains medically stable, pain is controlled, and they are safe with mobilization.
[2024-11-29] MEDS: LACTATED RINGERS 500 ML 500 ML IV (10:08)
--- NOTE | 2024-11-29 10:37 | PC.NURSE ---
pt wokred with PT when she returned pt reported being lightheaded, upon checking bp it was reported at 80/48. discussed with hospitalist and 500ml Lr order received and started. pain managed with oxycodone and scheduled tylenol.
--- NOTE | 2024-11-29 15:59 | PC.NURSE ---
Shift Note: Pt friendly and cooperative. BP's WNL this shift. Pt ambulates well with assistx1 with walker and GB. Denies dizziness or lightheadedness with position changes. Rates pain 5/10, PRN oxycodone given with scheduled Tylenol. Pt discharged to home in the care of her via wheelchair. Pt and her verbalized understanding of discharge instructions and follow-up appointments.
== END 2024-11-29 16:03 | disposition home or self-care (01) ==
LOC: OR 11:27 → MEDSURG 11:30
PROVIDERS: PCP Family Medicine; Visit Provider Orthopaedic Surgery Sports Medicine
PROC: (CPT 27447; principal; 2024-11-28 13:00)
DX: M17.12 Unilateral primary osteoarthritis, left knee (principal); G89.18 Other acute postprocedural pain; R00.1 Bradycardia, unspecified; I10 Essential (primary) hypertension; Z83.3 Family history of diabetes mellitus; Z79.82 Long term (current) use of aspirin; K21.9 Gastro-esophageal reflux disease without esophagitis; M85.80 Other specified disorders of bone density and structure, unspecified site; M10.9 Gout, unspecified; E78.5 Hyperlipidemia, unspecified
CPT/HCPCS: 27447; 01402; 36415; 64447; 64454; 73560; 76942; 82565; 84132; 84295; 84520; 85025; 94761; 97110; 97116; 97161; 97165; 99100; A9270; C1776; J0665; J0690; J1100; J2250; J2371; J2405; J2704; J3010; J3490; J7120

== ENCOUNTER 2024-12-21 11:10 | Outpatient (CLI) | payer MEDICARE, SELFPAY ==
--- NOTE | 2024-12-21 11:30 | CRLHL7_ITS ---
For Patients: As a result of the Century Cures Act, medical imaging exams and procedure reports are released immediately into your electronic medical record. You may view this report before your referring provider. If you have questions, please contact your health care provider. BILATERAL SCREENING MAMMOGRAM WITH COMPUTER-AIDED DETECTION AND TOMOSYNTHESIS TECHNIQUE: CC and MLO views were obtained. These mammographic images have been obtained using full-field digital technique. These mammographic images were interpreted with the benefit of computer-aided detection. Breast Tomosynthesis was used in this interpretation. COMPARISON FILM: 10/20/23, 01/14/22, 12/04/20. FINDINGS: The breasts are almost entirely fatty. IMPRESSION: There is no radiographic evidence for malignancy. ASSESSMENT: BI-RADS Category 1: Negative RECOMMENDATION: Routine screening mammogram in 1 year. A lay language report of this examination will be provided to the patient. Alberto Hooper M.D. Diagnostic Radiologist [email or web address] SP/Dictated by: Alberto Hooper MD @ 12/21/2024 12:33:00 PM (Electronically Signed)
== END 2024-12-21 11:11 | disposition home or self-care (01) ==
LOC: MAMMO 11:12
PROVIDERS: PCP Family Medicine; Visit Provider Family Medicine
DX: Z12.31 Encounter for screening mammogram for malignant neoplasm of breast (principal); M17.12 Unilateral primary osteoarthritis, left knee; Z96.652 Presence of left artificial knee joint; Z51.89 Encounter for other specified aftercare
CPT/HCPCS: 77063; 77067

== ENCOUNTER 2025-02-09 08:30 | Outpatient (RCR) | payer MEDICARE, SELFPAY ==
--- NOTE | 2024-11-21 16:55 | PT.OPEX ---
PT [facility] PT [facility] Eval Start: 11/21/24 08:54 Freq: Status: Active Protocol: Document 11/21/24 08:55 KLV (Rec: 11/21/24 16:52 KLV [id number]) E-signed By Norah Luna, PT Physical Therapy Outpatient Evaluation Insurance Information Recert Due Date 02/15/25 Insurance Name Medicare B Medical Diagnosis Left knee OA Pre and post-op L TKA DOS: 07/15 Treating Diagnosis Left knee pain, limited knee ROM, antalgic gait, muscle weakness Imaging Report Information 11/15/24: x-ray: Severe osteoarthrosis in the left knee with Kellgren Dennis grade 4 changes in the lateral compartment. There also tricompartmental osteophytes. Subchondral sclerosis laterally. Significant genu valgum position. Osteophyte fragment off the superolateral patella also incidentally noted. Finally, arteriosclerosis of the femoral, popliteal, and tibial/peroneal arteries noted . Referring MD Boggs Subjective Subjective Jennifer reports to PT with primary complaint of chronic left knee pain. Having to use 2WW at times; mostly uses walking stick. Also has SEC at home. Has B foot deformity that she uses orthotics to assist. does not wear shoes in the house. Has led to significant genu valgus knee positioning L>R. Lives in 1 story home with 3 steps to enter. Performing step to currently with railing on L. [employer] is able to help out initially. Laundry on main level however able to do this initially. PMH: HTN, B foot deformity with excessive overpronation Pain Comments 04/30 worst Date of Last Physician Visit 11/15/24 Date of Surgery (If applicable) 11/28/24 Current Work Status Retired Objective Other/Pertinent Objective Knee ROM: -L 0-104 -R 0-118 Quad set: good SLR: intact however very fatiguing Gait: significant genu valgus with trendelenburg/shuffling gait B, walking stick and occasionally 2WW depending on pain Assessment Assessment/Impression Jennifre is a 74 year old female presenting to PT for preparation of upcoming L TKA DOS 11/28/24 d/t end stage OA. Session focused on education of post-operative fall prevention precautions, transfers, gait with AD, stair negotiation, post-operative exercises. She is able to verbalize precautions and demonstrated independence with exercises, gait and stairs. She is appropriate to proceed with surgery at this time. Plan of Care Rehabilitation Potential Good Physical Therapy Goals By end of session today, patient will... Demonstrate appropriate gait pattern with FWW to utilize post surgery for optimal safety when ambulating Demonstrate ability to negotiate stairs using appropriate stair pattern post surgery for optimal safety when at home and in community Verbalize understanding of most appropriate home set up including needed equipment for optimal safety and recovery post surgery Be independent in HEP program to show ability to perform appropriate exercises post surgery Treatment Plan/Direct Interventions Gait Training,Ice/Cold/ Vasopneumatic,Joint Mobilization,Manual Therapy, Neuromuscular Re-ed,Self-Care/ Home Management,Therapeutic Activities,Therapeutic Exercises Frequency/Duration Re-evaluate following surgery Patient Will Be Discharged From Therapy Completion of LTG(s), Independent w/HEP, Independently Progressing Evaluation Billing Untimed Code Treatment Minutes 20 Complexity Low Certification Information Initial Certification Date 11/21/24 Ending Certification Date 02/15/25 Provider Signature Required Yes Provider Signature Shows Agreement With POC & Medical Necessity Physician NPI Number Write NPI# Here Physician Comment/Change : Physician Signature & Date Requested Please Sign/Date Here
== END 2025-02-09 15:56 | disposition home or self-care (01) ==
PROVIDERS: PCP Family Medicine; Visit Provider Orthopaedic Surgery Sports Medicine
DX: M17.12 Unilateral primary osteoarthritis, left knee (principal); Z96.652 Presence of left artificial knee joint; Z51.89 Encounter for other specified aftercare
CPT/HCPCS: 97110; 97112; 97116; 97140; 97161; 97164; 97535